=== PATIENT | male | born 1985 | race African-American/Black ===

== ENCOUNTER 2016-09-23 23:13 | Emergency (ER) | payer OTHER ==
[~2016-09-23] VITALS: Ht 175.3 cm; Wt 80.0 kg
[2016-09-23 23:14] VITALS: BP 180/110; PULSE 73; RESP 18; TEMP 98.9; O2SAT 99
[2016-09-23 23:40] VITALS: BP 160/96; PULSE 71; RESP 16; O2SAT 98
--- NOTE | 2016-09-24 00:05 | PD ---
HPI Chief Complaint: Chest Pain Time Seen by Provider: 23:58 Travel History International Travel<30 days: No Contact w/Intl Traveler<30days: No Traveled to known affect area: No History of Present Illness HPI This patient complains of an odd sensation in his chest. He says it is not pain but feels like a vibrating drill and is center sternum. He has had this every single day for the last 11 months. No injury. Denies shortness of breath. Symptoms are nonexertional. Denies history of cardiac disease. No alleviating factors. Symptoms severity is mild. PFSH Past Medical History Bipolar Disorder: Yes Depression: Yes Cardiovascular Problems: Yes (htn) Congestive Heart Failure: Yes (diagnosed this month in [facility]) Diminished Hearing: No Genitourinary: No Hypertension: Yes Implanted Vascular Access Dvce: No Musculoskeletal: No Neurologic: Yes Psychiatric: Yes (PTSD) Reproductive: No Respiratory: No Seizures: Yes Past Surgical History Surgical History: No Previous Surgery Social History Alcohol Use: No Tobacco Use: No Substance Use: No Allergies-Medications (Allergen,Severity, Reaction): Coded Allergies: No Known Allergies (Verified , 09/23/16) Reported Meds & Prescriptions Reported Meds & Active Scripts Active No Active Prescriptions or Reported Medications Review of Systems General / Constitutional: No: Fever Eyes: No: Visual changes HENT: No: Headaches Cardiovascular: Positive: Chest Pain or Discomfort Respiratory: No: Shortness of Breath Gastrointestinal: No: Abdominal Pain Genitourinary: No: Dysuria Musculoskeletal: No: Pain Skin: No Rash Neurologic: No: Weakness Psychiatric: No: Depression Endocrine: No: Polydipsia Hematologic/Lymphatic: No: Easy Bruising Physical Exam Narrative GENERAL: Well-nourished, well-developed patient in no apparent distress. SKIN: Focused skin assessment reveals no rash and nodules. Skin is Warm and dry. HEAD: Atraumatic. Normocephalic. EYES: Pupils equal and round. No scleral icterus. No injection or drainage. ENT: No nasal bleeding or discharge. Mucous membranes pink and moist. NECK: Trachea midline. No JVD. CARDIOVASCULAR: Regular rate and rhythm. No murmur appreciated. RESPIRATORY: No accessory muscle use. Clear to auscultation. Breath sounds equal bilaterally. GASTROINTESTINAL: Abdomen soft, non-tender, nondistended. Hepatic and splenic margins not palpable. MUSCULOSKELETAL: No obvious deformities. No clubbing. No cyanosis. No edema. No chest wall ecchymosis or crepitus NEUROLOGICAL: Awake and alert. No obvious cranial nerve deficits. Motor grossly within normal limits. Normal speech. PSYCHIATRIC: Appropriate mood and affect; insight and judgment normal. Data Data Last Documented VS Vital Signs Date Time Temp Pulse Resp B/P Pulse Ox O2 Delivery O2 Flow Rate FiO2 09/24/16 01:30 67 18 147/83 99 Room Air 09/23/16 23:14 98.9 Orders Electrocardiogram (09/24/16 00:02) Basic Metabolic Panel (Bmp) (09/24/16 00:02) Ckmb (Isoenzyme) Profile (09/24/16 00:02) Complete Blood Count With Diff (09/24/16 00:02) Prothrombin Time / Inr (Pt) (09/24/16 00:02) Act Partial Throm Time (Ptt) (09/24/16 00:02) Troponin I (09/24/16 00:02) Chest, Single Ap (09/24/16 00:02) Ecg Monitoring (09/24/16 00:02) Iv Access Insert/Monitor (09/24/16 00:02) Oximetry (09/24/16 00:02) Sodium Chloride 0.9% Flush (Ns Flush) (09/24/16 00:15) CKMB (09/24/16 00:10) CKMB% (09/24/16 00:10) Labs Laboratory Tests Test 09/24/16 00:10 White Blood Count 5.5 TH/MM3 Red Blood Count 5.12 MIL/MM3 Hemoglobin 14.8 GM/DL Hematocrit 43.9 % Mean Corpuscular Volume 85.8 FL Mean Corpuscular Hemoglobin 28.9 PG Mean Corpuscular Hemoglobin 33.7 % Concent Red Cell Distribution Width 13.8 % Platelet Count 235 TH/MM3 Mean Platelet Volume 9.3 FL Neutrophils (%) (Auto) 48.5 % Lymphocytes (%) (Auto) 38.8 % Monocytes (%) (Auto) 11.2 % Eosinophils (%) (Auto) 0.9 % Basophils (%) (Auto) 0.6 % Neutrophils # (Auto) 2.7 TH/MM3 Lymphocytes # (Auto) 2.1 TH/MM3 Monocytes # (Auto) 0.6 TH/MM3 Eosinophils # (Auto) 0.1 TH/MM3 Basophils # (Auto) 0.0 TH/MM3 CBC Comment DIFF FINAL Differential Comment Prothrombin Time 11.2 SEC Prothromb Time International 1.0 RATIO Ratio Activated Partial 26.3 SEC Thromboplast Time Sodium Level 142 MEQ/L Potassium Level 3.6 MEQ/L Chloride Level 105 MEQ/L Carbon Dioxide Level 29.8 MEQ/L Anion Gap 7 MEQ/L Blood Urea Nitrogen 13 MG/DL Creatinine 1.14 MG/DL Estimat Glomerular Filtration 90 ML/MIN Rate Random Glucose 94 MG/DL Calcium Level 9.4 MG/DL Total Creatine Kinase 109 U/L Creatine Kinase MB 0.5 NG/ML Troponin I LESS THAN 0.02 NG/ML MDM Medical Decision Making Medical Screen Exam Complete: Yes Emergency Medical Condition: Yes Medical Record Reviewed: Yes Differential Diagnosis Differential diagnosis includes CT, angina, pericarditis, pleurisy, GERD, anxiety. Narrative Course I have reviewed the patient's electronic medical record. IV placed I reviewed the EKG shows sinus rhythm with no ST elevation I reviewed the chest x-ray which is normal Extended cardiac monitoring shows sinus rhythm without ectopy CBC is normal Metabolic profile is normal CK is normal Troponin is normal Coagulation studies are normal This patient has been having this low grade atypical minor chest sensation for 11 straight months. I don't feel he requires emergent hospitalization for today. Workup here is negative. He should follow-up with primary care and discuss it with them. Diagnosis Primary Impression: Chest pain in adult Additional Instructions: The patient was advised to follow up with their physician and return if they worsen. Med/Other Pt SpecificInfo: Other Scripts No Active Prescriptions or Reported Meds Disposition: DISCHARGE HOME Condition: Stable Inocente Ortiz MD Sep 24, 2016 00:05
[2016-09-24 00:14] VITALS: RESP 16; O2SAT 100
[2016-09-24] MEDS ORDERED: SODIUM CHLORIDE 0.9% FLUSH 10 ML FLUSH IVF PRN (00:15)
[2016-09-24 00:22] LABS: AUTOMATED NEUTROPHIL # 2.7 TH/MM3 (1.8-7.7); BASOPHIL % 0.6 % (0.0-2.0); EOSINOPHIL # 0.1 TH/MM3 (0-0.4); EOSINOPHIL % 0.9 % (0.0-4.0); HEMATOCRIT 43.9 % (39.0-51.0); HEMO FLAGS DIFF FINAL; LYMPH % 38.8 % (9.0-44.0); LYMPHOCYTE # 2.1 TH/MM3 (1.0-4.8); MEAN CELL VOLUME 85.8 FL (80.0-100.0); MEAN CORPUSCULAR HEMOGLOBIN 28.9 PG (27.0-34.0); MEAN CORPUSCULAR HGB CONC 33.7 % (32.0-36.0); MONO % 11.2 % (0.0-8.0); NEUT % 48.5 % (16.0-70.0); PLATELET COUNT 235 TH/MM3 (150-450); RED BLOOD COUNT 5.12 MIL/MM3 (4.50-5.90); RED CELL DISTRIBUTION WIDTH 13.8 % (11.6-17.2); WHITE BLOOD COUNT 5.5 TH/MM3 (4.0-11.0)
--- NOTE | 2016-09-24 00:27 | RADRPT ---
EXAM DATE/TIME: 09/24/2016 00:19 [facility] COMPARISON: No previous studies available for comparison. INDICATIONS : Chest pain and shortness of breath. MEDICAL HISTORY : None. SURGICAL HISTORY : None. ENCOUNTER: Initial ACUITY: 3 days PAIN SCORE: 6/10 LOCATION: Bilateral chest FINDINGS: A single view of the chest demonstrates the lungs to be symmetrically aerated without evidence of mas s, infiltrate or effusion. The cardiomediastinal contours are unremarkable. Osseous structures are intact. CONCLUSION: No evidence of acute cardiopulmonary disease. Abdi Romeo MD on September 24, 2016 at 0:26 Board Certified Radiologist. This report was verified electronically.
[2016-09-24 00:34] LABS: APTT (PATIENT) 26.3 SEC (24.3-30.1); PROTHROMBIN TIME - PATIENT 11.2 SEC (9.8-11.6)
[2016-09-24 00:53] LABS: ANION GAP 7 MEQ/L (5-15); BICARBONATE 29.8 MEQ/L (21.0-32.0); BLOOD UREA NITROGEN 13 MG/DL (7-18); CHLORIDE 105 MEQ/L (98-107); GLOMERULAR FILTRATION RATE 90 ML/MIN (>89); POTASSIUM 3.6 MEQ/L (3.5-5.1); SODIUM (NA) 142 MEQ/L (136-145)
[2016-09-24 00:56] LABS: CREATINE KINASE 109 U/L (39-308)
[2016-09-24 01:09] LABS: CKMB 0.5 NG/ML (0.5-3.6)
[2016-09-24 01:30] VITALS: BP 147/83; PULSE 67; RESP 18; O2SAT 99
--- NOTE | 2016-09-24 13:47 | EKG ---
Date Performed: 09/23/2016 Time Performed: 23:30:56 PTAGE: 31 years EKG: Sinus rhythm POSSIBLE LEFT ATRIAL ENLARGEMENT BORDERLINE ECG NO PREVIOUS TRACING DOCTOR: Melba Llanes Interpretating Date/Time 09/24/2016 13:43:26
[2016-10-08] MEDS ORDERED: BENZ0.5T PO (09:10)
[2016-10-08] MEDS ORDERED: RISP1TAB2 PO (09:10)
[2016-10-08] MEDS ORDERED: DIVA500T PO (09:10)
[2016-10-08] MEDS ORDERED: SIMV40TA PO (09:36)
[2016-10-08] MEDS ORDERED: ENAL5TAB PO (09:36)
== END 2016-09-24 02:47 | disposition home or self-care (01) ==
LOC: NEPC 23:13
DX: R07.9 Chest pain, unspecified (principal); F31.9 Bipolar disorder, unspecified; F32.9 Major depressive disorder, single episode, unspecified; I10 Essential (primary) hypertension; F43.10 Post-traumatic stress disorder, unspecified
CPT/HCPCS: 71010; 80048; 82550; 82552; 84484; 85025; 85610; 85730; 93005; 99285

== ENCOUNTER → 2016-10-08 | Outpatient (CLI) | payer OTHER ==
[~2016-10-08] MED LIST: BENZ0.5T PO; DIVA500T PO; ENAL5TAB PO; RISP1TAB2 PO; SIMV40TA PO
[2016-10-08 11:00] LABS: AUTOMATED NEUTROPHIL # 1.9 TH/MM3 (1.8-7.7); BASOPHIL % 0.4 % (0.0-2.0); EOSINOPHIL # 0.1 TH/MM3 (0-0.4); EOSINOPHIL % 1.6 % (0.0-4.0); HEMATOCRIT 42.2 % (39.0-51.0); HEMO FLAGS DIFF FINAL; LYMPH % 38.7 % (9.0-44.0); LYMPHOCYTE # 1.7 TH/MM3 (1.0-4.8); MEAN CELL VOLUME 87.5 FL (80.0-100.0); MEAN CORPUSCULAR HEMOGLOBIN 28.5 PG (27.0-34.0); MEAN CORPUSCULAR HGB CONC 32.5 % (32.0-36.0); MONO % 15.7 % (0.0-8.0); NEUT % 43.6 % (16.0-70.0); PLATELET COUNT 172 TH/MM3 (150-450); RED BLOOD COUNT 4.82 MIL/MM3 (4.50-5.90); RED CELL DISTRIBUTION WIDTH 14.1 % (11.6-17.2); WHITE BLOOD COUNT 4.4 TH/MM3 (4.0-11.0)
[2016-10-08 11:14] LABS: ALT (GPT) 17 U/L (12-78); ANION GAP 7 MEQ/L (5-15); AST (GOT) 16 U/L (15-37); BICARBONATE 28.8 MEQ/L (21.0-32.0); BLOOD UREA NITROGEN 9 MG/DL (7-18); CHLORIDE 104 MEQ/L (98-107); GLOMERULAR FILTRATION RATE 118 ML/MIN (>89); GLUCOSE,FASTING 86 MG/DL (74-99); POTASSIUM 3.8 MEQ/L (3.5-5.1); SODIUM (NA) 140 MEQ/L (136-145)
[2016-10-08 11:24] LABS: ALKALINE PHOSPHATASE 57 U/L (45-117); HDL CHOLESTEROL 51.1 MG/DL (40.0-60.0); LDL CHOLESTEROL 171 MG/DL (0-99); TOTAL BILIRUBIN ADULT 0.2 MG/DL (0.2-1.0)
[2016-10-08 11:39] LABS: HEMOGLOBIN A1a 0.9 %; HEMOGLOBIN A1b 1.6 %; HEMOGLOBIN Ao 86.4 %; HEMOGLOBIN LA1C 1.8 %; HEMOGLOBIN P3 3.3 %
== END ==
LOC: CLAB 10:11
PROVIDERS: ATTEND Family Medicine
DX: F31.9 Bipolar disorder, unspecified (principal); F41.9 Anxiety disorder, unspecified; I10 Essential (primary) hypertension; E78.5 Hyperlipidemia, unspecified
CPT/HCPCS: 36415; 80053; 80061; 83036; 84146; 84443; 85025